=== PATIENT | female | born 1995 | race Caucasian/White ===

== ENCOUNTER 2023-05-13 22:33 | Emergency (ER) | payer OTHER ==
[2023-05-13] MEDS ORDERED: Lactated Ringers 1,000 ML IV ONE (23:06)
[2023-05-13] MEDS ORDERED: Sodium Chloride 0.9% 10 ML Syringe FLUSH PRN (23:06)
[2023-05-13] MEDS ORDERED: Ondansetron 4 MG/2 ML SDV IVPUSH ONE (23:31)
== END 2023-05-14 00:35 | disposition home or self-care (01) ==
LOC: JP.ED 22:33
DX: O99.281 Endocrine, nutritional and metabolic diseases complicating pregnancy, first trimester (principal); E86.0 Dehydration; Z3A.01 Less than 8 weeks gestation of pregnancy
CPT/HCPCS: 96361; 96374; 99283; J2405; J3490; J7120